=== PATIENT | female | born 1995 | race Caucasian/White ===

== ENCOUNTER 2020-02-26 10:55 | Outpatient (CLI) | payer OTHER ==
--- NOTE | 2020-02-26 12:06 | Non Stress Test Report ---
Non Stress Test Datetime Report Generated by CPN: 02/26/2020 12:05 DEMOGRAPHIC Test Number: 2 EGA NST: 39.0 INDICATION Indication for Study (NST) Other: repeat NST VITAL SIGNS Temperature - NST: 98.5 Pulse - NST: 66 RESP - NST: 18 NBPSYS NST: 117 NBPDIA NST: 68 MONITORING Monitor Explained: Monitor Explained; Test Explained; Patient Verbalized Understanding Time on Monitor: 02/26/2020 11:03 Time off Monitor: 02/26/2020 11:45 NST Duration: 42 NST INTERVENTIONS NST Interventions: PO Hydration; Reposition Patient Physician Notified NST: Dr Bennett BABY A: [id number] BABY A Movement : Present Contraction Frequency : Irreg FHR Baseline : 125 Accelerations : Prolonged Decelerations : None Variability : Moderate 6-25bpm NST Review: Meets Criteria for Reactive NST NST Review and Verified By : Cyn RN NST Results: Reactive NST REPORT Report Trigger: Send Report
== END 2020-02-26 11:51 | disposition home or self-care (01) ==
LOC: LC 10:55
PROVIDERS: ATTEND Obstetrics & Gynecology Gynecology
DX: O36.8330 Maternal care for abnormalities of the fetal heart rate or rhythm, third trimester, not applicable or unspecified (principal); Z3A.39 39 weeks gestation of pregnancy; Z88.0 Allergy status to penicillin; Z91.040 Latex allergy status
CPT/HCPCS: 59025

== ENCOUNTER 2020-03-05 03:19 | Inpatient (IN) | payer OTHER ==
[2020-03-05] MEDS ORDERED: RINGERS SOLUTION,LACTATED 1,000 ML IV PRN (03:29)
[2020-03-05] MEDS ORDERED: MISOPROSTOL 0.2 MG TABLET ONE (03:32)
[2020-03-05] MEDS ORDERED: OXYTOCIN/0.9 % SODIUM CHLORIDE 0 UNIT/0 ML RTUINJ ONE (03:32)
[2020-03-05] MEDS ORDERED: OXYTOCIN 10 UNIT/ML VIAL ONE (03:32)
[2020-03-05] MEDS ORDERED: LIDOCAINE 1% INJ-PF (10 MG/ML) 30 ML SDV ONE (03:32)
--- NOTE | 2020-03-05 04:19 | Admission Physical ---
Datetime Report Generated by CPN: 03/05/2020 04:18 CURRENT ADMISSION Chief Complaint: Uterine Contractions Indication for Induction: Not Applicable Admit Impression : Term, Intrauterine ; Active Labor Admit Plan: Admit to Unit; Initiate Labor Protocol ALLERGIES Medication Allergies: Yes Medication Allergies: Penicillins (02/26/2020); Latex, Natural Rubber (02/26/2020) Latex: Latex Allergies OBSTETRICAL HISTORY EDC: 03/04/2020 00:00 : 2 Para: 1 Term: 1 : 0 SAB: 0 IAB: 0 Livin Cesareans: 0 VBACs: 0 Gestational Diabetes: Yes Rh Sensitization: No Incompetent Cervix: No JOHN: No Infertility: No ART Treatment: No Uterine Anomaly: No IUGR: No Hx Previous C/S: No Macrosomia: No Hx Loss/Stillborn: No PIH: No Hx : No Placenta Previa/Abruption: No Depression/PP Depression: No PTL/PROM: No Post Hemorrhage: No Current Procedures: Ultrasound; NST Obstetrical History Comments: g1-2016, , male, rapid labor 2 hours, 6lb 13oz, nicu stay for 1 week, meconium g2-current, GDM SEE RECORDS Alcohol: No Marijuana : No Cocaine: No Other Illicit Drugs: No Cigarettes: Never Smoker. [id number] Advised to Stop: No MEDICAL HISTORY Diabetes: Yes Diabetes Type: Gestational Diabetes Blood Transfusion: No Pulmonary Disease (Asthma, TB): No Breast Disease: No Hypertension: No Horse Breeder Surgery: No Heart Disease: No Hosp/Surgery: Yes Autoimmune Disorder: No Anesthetic Complications: No Kidney Disease: No Abnormal Pap Smear: No Neuro/Epilepsy: No Psychiatric Disorders: No Other Medical Diseases: No Hepatitis/Liver Disease: No Significant Family History: No Varicosities/Phlebitis: No Trauma/Violence : No Thyroid Dysfunction: No Medical History Comments: childbirth x 1 (Annotations: Data stored by [facility] on behalf of user) INFECTIOUS HISTORY Gonorrhea: No Genital Herpes: No Chlamydia: No Tuberculosis: No Syphilis: No Hepatitis: No HIV/AIDS Exposure: No Rash or Viral Illness: No HPV: No PHYSICAL EXAM General: Normal HEENT: Normal Neurologic: Normal Thyroid: Deferred Heart: Normal Lungs: Normal Breast: Deferred Back: Normal Abdomen: Normal Genitourinary Exam: Normal Extremities: Normal DTRs: Normal Pelvic Type: Adequate Vital Signs: Reviewed FETUS A EGA: 40.1 Monitoring: External US Decelerations: None Presentation: Vertex Admit Comment: 24yo at 40+1ega presents for active labor. I was called at 0328 and was told she was 8cm multip with h/o fast labors. She delivered as I arrived to her door on labor and delivery. See delivery note. She had been offered IOL due to h/o precip but declined in office. H/o GDM - diet controlled. Admit and precipitous delivery. Pt reports ctx started at 0200 and SROM clear fluid at 0300 and that is when they began to come in to hospital. PLANS FOR LABOR AND DELIVERY Labor and Delivery: None Pain Management: None Feeding Preference: Breast Benefit of Breast Feed Discussed: Yes Circumcision: N/A INFORMED CONSENT Informed Consent Obtained: Vaginal Delivery; Risks, Benefits and Alternatives Discussed Signature: with User ID: [email or web address]
[2020-03-05] MEDS ORDERED: DIBUCAINE 1% OINTMENT 28 GM TP PRN (04:21)
[2020-03-05] MEDS ORDERED: OXYTOCIN/0.9 % SODIUM CHLORIDE 30 UNIT/500 ML RTUINJ IV PRN (04:21)
[2020-03-05] MEDS ORDERED: PSEUDOEPHEDRINE HCL 30 MG TABLET PO PRN (04:21)
[2020-03-05] MEDS ORDERED: BENZOCAINE/MENTHOL AEROSOL SPRAY 56 ML TOP PRN (04:21)
[2020-03-05] MEDS ORDERED: PROMETHAZINE HCL 25 MG TABLET PO PRN (04:21)
[2020-03-05] MEDS ORDERED: MEASLES,MUMPS&RUBELLA VACC/PF 0.5 ML VIAL SUBCUT PRN (04:21)
[2020-03-05] MEDS ORDERED: ACETAMINOPHEN WITH CODEINE #3 TABLET PO PRN ×2 (04:21)
[2020-03-05] MEDS ORDERED: MAGNESIUM HYDROXIDE SUSP 30 ML UDCUP PO PRN (04:21)
[2020-03-05] MEDS ORDERED: ZOLPIDEM TARTRATE 5 MG TABLET PO PRN (04:21)
[2020-03-05] MEDS ORDERED: ACETAMINOPHEN 325 MG TABLET PO PRN (04:21)
[2020-03-05] MEDS ORDERED: PROMETHAZINE HCL 25 MG SUPP.RECT PR PRN (04:21)
[2020-03-05] MEDS ORDERED: GLYCERIN/WITCH HAZEL LEAF 1 EACH MED..WIPE TP PRN (04:21)
[2020-03-05] MEDS ORDERED: NA PHOS,M-B/NA PHOS,DI-BA (ADULT) 133 ML ENEMA PR PRN (04:21)
[2020-03-05] MEDS ORDERED: PROMETHAZINE HCL INJ 25 MG/1 ML VIAL IV PRN (04:21)
[2020-03-05] MEDS ORDERED: DIPHENHYDRAMINE HCL 25 MG CAPSULE PO PRN (04:21)
[2020-03-05 04:40] LABS: ABSOLUTE LYMPHOCYTES (AUTO) 1.5 10^3/uL (0.5-4.7); ABSOLUTE MONOCYTES (AUTO) 0.6 10^3/uL (0.1-1.4); ABSOLUTE NEUT (AUTO) 12.5 10^3/uL (1.7-8.2); BASOPHILS % (AUTO) 0.2 % (0-2); EOSINOPHILS % (AUTO) 0.3 % (0-6); HEMATOCRIT 41.3 % (36.0-47.0); HEMOGLOBIN 14.8 g/dL (12.0-15.5); LYMPHOCYTES % (AUTO) 9.9 % (13-45); MEAN CORPUSCULAR HEMOGLOBIN 32.3 pg (27.0-33.4); MEAN CORPUSCULAR HGB CONC 35.8 g/dL (32.0-36.0); MEAN CORPUSCULAR VOLUME 90 fl (80-97); MONOCYTES % (AUTO) 4.3 % (3-13); PLATELET COUNT 158 10^3/uL (150-450); RED BLOOD COUNT 4.58 10^6/uL (3.72-5.28); RED CELL DISTRIBUTION WIDTH 13.2 % (11.5-14.0); SEGMENTED NEUTROPHILS % (AUTO) 85.3 % (42-78); TOTAL CELLS COUNTED % (AUTO) 100 %; WHITE BLOOD COUNT 14.6 10^3/uL (4.0-10.5)
[2020-03-05] MEDS ORDERED: BENZOCAINE/MENTHOL AEROSOL SPRAY 56 ML ONE (05:59)
--- NOTE | 2020-03-05 06:25 | Delivery Summary ---
Del Sum A-C Datetime Report Generated by CPN: 03/05/2020 06:25 DELIVERY PERSONNEL DELIVERY PERSONNEL: [id number] Delivery Doctor:: Brittney Jimenes MD Labor and Delivery Nurse:: Sari Rocha RNcutter v groove Nurse:: Arleth Kemp RN Nursery Nurse:: Meri Ramirez RN Nursery Nurse:: FRANCISCA Jones/PHP CONSULTANT: Jacklyn Esteves, Additional Personnel: : Jeny Irene RN MATERNAL INFORMATION Delivery Anesthesia: None Medications After Delivery: Pitocin 10 Units IM Delivery QBL: 207 Maternal Complications: None; Precipitous Labor (<3hrs) Provider Comments: I was called at 0328 VFI delivered just as I arrived to the door of patients room at 0340. She arrived at 0324 and was checked at 0326. Cord doubly clamped and cut and infant on maternal abdomen. Placenta delivered spontaneously and intact. IM pitocin given due to no IV at the time of delivery. No perineal lacerations. Good hemostasis. FF at U. Mother and baby stable upon provider leaving the room. LABOR SUMMARY EDC: 03/04/2020 00:00 No. Babies in Womb: 1 Attempted: No Labor Anesthesia: None LABOR INFORMATION Reason for Induction: Not Applicable Onset of Labor: 03/05/2020 03:00 Complete Dilatation: 03/05/2020 03:34 Oxytocin: N/A Group B Beta Strep: neg Antibiotics # of Doses: n/a Steroids Given: None Reason Steroids Not Administered: Not Applicable MEMBRANES Membranes Rupture Method: Spontaneous Rupture of Membranes: 03/05/2020 03:00 Length of Rupture (hr): 0.67 Amniotic Fluid Color: Clear Amniotic Fluid Amount: Moderate Amniotic Fluid Odor: Normal STAGES OF LABOR Stage 1 hr: 0 Stage 1 min: 34 Stage 2 hr: 0 Stage 2 min: 6 Stage 3 hr: 0 Stage 3 min: 5 Total Time in Labor hr: 0 Total Time in Labor min: 45 VAGINAL DELIVERY Episiotomy: None Laceration #1: None Laceration Extension #1: N/A Laceration Repair: Not Applicable Sponge Count Correct: N/A Sharps Count Correct: N/A CSECTION DELIVERY Primary Indication: N/A Secondary Indication: N/A CSection Incidence: N/A Labor: N/A Elective: N/A CSection Incision: N/A BABY A INFORMATION Delivery Date/Time: 03/05/2020 03:40 Method of Delivery: Vaginal Nurse Controlled Delivery: Yes Born in Route : No : N/A Forceps: N/A Vacuum Extraction: N/A Shoulder Dystocia : No PRESENTATION/POSITION BABY A Presentation: Cephalic Cephalic Presentation: Vertex Vertex Position: Right Occipital Anterior Breech Presentation: N/A PLACENTA INFORMATION BABY A Placenta Delivery Time : 03/05/2020 03:45 Placenta Method of Delivery: Spontaneous Placenta Status: Delivered SCORES BABY A Heart Rate 1 min: >100 bpm Resp Effort 1 min: Good Cry Reflex Irritability 1 min: Cough or Sneeze or Pulls Away Muscle Tone 1 min: Active Motion Color 1 min: Blue/Pale Resuscitation Effort 1 min: Tactile Stimulation SCORE 1 MIN: 8 Heart Rate 5 min: >100 bpm Resp Effort 5 min: Good Cry Reflex Irritability 5 min: Cough or Sneeze or Pulls Away Muscle Tone 5 min: Active Motion Color 5 min: Body [place], Extremities Blue Resuscitation Effort 5 min: Tactile Stimulation SCORE 5 MIN: 9 INFANT INFORMATION BABY A Gestational Age at Delivery: 40.1 Gestational Status: Full Term- 39- 40.6 Weeks Outcome : Liveborn Infant Condition : Stable Infant Sex: Female IDENTIFICATION BABY A Verification Date/Time: 03/05/2020 04:08 ID Band Number: [id number] Mother's Name Verified: Yes RN Verifying Infant: M. Irene RN and A. Chalman RN WEIGHT/LENGTH BABY A Birthweight (gm): 3780 Infant Weight (lb): 8 Infant Weight (oz): 5 Infant Length (in): 21.00 Length (cm): 53.34 CORD INFORMATION BABY A No. Cord Vessels: 3 Nuchal Cord : N/A Nuchal Cord- Other: left compound hand Cord Blood Taken: Yes-For Eval (Mom's Blood Type - or O+) Infant Suction: Mouth; Nose ASSESSMENT BABY A Complications: None Physical Findings at Delivery: Other Physical Findings- Other: Left compound hand; see initial nursery assessment Respirations: Appears Normal Skin to Skin: Yes Skin to Skin Time (min): 75 Insurance Sales Associate/ALS Called : No Care By: Roberto Echeverria RN Transferred To: Remains with Mother BABY B INFORMATION : N/A SIGNATURES Signature: with User ID: [email or web address]
--- NOTE | 2020-03-05 06:25 | Birth Certificate Data ---
Cert Data Datetime Report Generated by CPN: 03/05/2020 06:25 CERTIFICATE DATA 47a. Care: Yes (02/26/2020 10:56:Sari Rocha RN) 47b. Date of First Visit: 08/04/2019 00:00 (02/26/2020 10:56:Ne Verma RN) 48a. Number of Prev Live Births: 1 (02/26/2020 10:56:Ne Verma RN) 48b. Now Livin (02/26/2020 10:56:Ne Verma RN) 48c. Live Births Now : 0 (02/26/2020 10:56:QS system process) 48d. Date of Last Live : 11/22/2016 00:00 (02/26/2020 10:56:Ne Verma RN) 48e. Losses: 0 (02/26/2020 10:56:Ne Verma RN) RISK FACTORS IN THIS 49a. Diabetes: Yes (02/26/2020 10:56:Sari Rocha RN) Type of Diabetes: Gestational Diabetes (02/26/2020 10:56:Sari Rocha RN) 49b. Hypertension: No (02/26/2020 10:56:Sari Rocha RN) 49c. Previous Births: 0 (02/26/2020 10:56:Ne Verma RN) 49d. Stillborns: No (02/26/2020 10:56:Sari Rocha RN) 49d. IUGR: No (02/26/2020 10:56:Sari Rocha RN) 49e. Infertility Treatment: No (02/26/2020 10:56:Sari Rocha RN) 49f. Previous Cesareans: 0 (02/26/2020 10:56:Ne Verma RN) Mother's Height 50b. Height Inches: 64 (03/05/2020 04:25:QS system process) Mother's Weight 51b. Weight at Delivery (lbs): 145 (02/26/2020 12:05:QS system process) 52. Dt Last Normal Menses Began: 05/29/2019 00:00 (02/26/2020 10:56:Ne Verma RN) Infections Present/Treated 53a. Gonorrhea: No (02/26/2020 10:56:Sari Rocha RN) Results this Hospital Visit : Negative (02/26/2020 10:56:Ne Verma RN) 53b. Syphilis: No (02/26/2020 10:56:Sari Rocha RN) 53c. Chlamydia: No (02/26/2020 10:56:Sari Rocha RN) Results this Hospital Visit: Negative (02/26/2020 10:56:Ne Verma RN) 53d. Hepatitis B: No (02/26/2020 10:56:Sari Rocha RN) Results this Hospital Visit: Negative (02/26/2020 10:56:Ne Verma RN) 53e. Hepatitis C: Negative (02/26/2020 10:56:Ne Verma RN) 53h. Mother Tested for HBsAG: Yes (02/26/2020 10:56:Ne Verma RN) 53i. Date Tested: 08/05/2019 00:00 (02/26/2020 10:56:Ne Bertrandry, RN) 53j. Test Result: Negative (02/26/2020 10:56:Ne Verma, RN) Obstetric Procedures 54a, b, c. Obstetric Procedures: Ultrasound; NST (02/26/2020 10:56:Brisa Kwanmaribel, RN) Cigarette Smoking Cigarette Smoking: Never Smoker. [id number] (02/26/2020 10:56:[facility]) Onset of Labor 56a. PROM >12 Hrs: 0.67 (03/05/2020 03:30:QS system process) 56b. Precipitous Labor <3 Hrs: 0 (02/26/2020 10:56:QS system process) 56c. Prolonged Labor > 20 Hrs: 0 (02/26/2020 10:56:QS system process) 57a. Induction of Labor: N/A (02/26/2020 10:56:Jeny Irene RN) 57c. Non-Vertex Presentation A: Vertex (02/26/2020 10:56:Jeny Irene RN) 57d. Steroids - Lung Mat: None (02/26/2020 10:56:Jeny Irene RN) 57d. Steroids - Lung Mat: Not Applicable (02/26/2020 10:56:Jeny Irene RN) 57f. Mat [place] or Temp >100.4: 98.4 (02/26/2020 10:56:Sari Rocha RN) 57g. Moderate/Heavy Meconium: Clear (03/05/2020 03:30:Sari Rocha RN) 57h. Intolerance of Labor: N/A (02/26/2020 10:56:Jeny Irene RN) : N/A (02/26/2020 10:56:Jeny Irene RN) 57i. Epidural/Spinal Anesthesia: None (02/26/2020 10:56:Jeny Irene RN) Method of Delivery 58a. Forceps - Unsuccessful A: N/A (02/26/2020 10:56:Jeny Irene RN) 58b. Vacuum - Unsuccessful A: N/A (02/26/2020 10:56:Jeny Irene RN) 58c. Presentation at 58c. Presentation at - A : Vertex (02/26/2020 10:56:Jeny Irene RN) 58c. Presentation at - A : N/A (02/26/2020 10:56:Jeny Irene RN) 58c. Presentation at - A : Cephalic (02/26/2020 10:56:Jeny Irene RN) Final Route and Method of Del 58d. Baby A Route/Delivery: Vaginal (03/05/2020 03:40:Jeny Irene RN) 58e. Trial of Labor Attempted: No (02/26/2020 10:56:Jeny Irene RN) 58e. Trial of Labor Attempted A: N/A (02/26/2020 10:56:Jeny Irene RN) 58e. Trial of Labor Attempted B: N/A (02/26/2020 10:56:Jeny Irene RN) Maternal Morbidity 59b. 3rd or 4th Degree Lacs: None (02/26/2020 10:56:Britntey Jimenes MD ([facility])) 59b. 3rd or 4th Degree Lacs: N/A (02/26/2020 10:56:Jeny Irene RN) Birthweight Baby A: 3780 (02/26/2020 10:56:Jeny Irene RN) 60a. Pounds : 8 (02/26/2020 10:56:QS system process) 60b. Ounces: 5 (02/26/2020 10:56:QS system process) 61. GA at Delivery Baby A: 40.1 (02/26/2020 10:56:Jeny Irene RN) : Full Term- 39- 40.6 Weeks (02/26/2020 10:56:QS system process) 62a. 5 Minute Baby A: 9 (02/26/2020 10:56:QS system process)
[2020-03-05 06:43] LABS: BILIRUBIN,URINE NEGATIVE (NEGATIVE); GLUCOSE, URINE 50 mg/dL (NEGATIVE); KETONES,URINE NEGATIVE (NEGATIVE); LEUKOCYTE ESTERASE,URINE NEGATIVE (NEGATIVE); NITRITE,URINE NEGATIVE (NEGATIVE); PROTEIN,URINE 100 mg/dL (NEGATIVE); URINE SPECIFIC GRAVITY 1.008; UROBILINOGEN,URINE NEGATIVE mg/dL (<2.0)
[2020-03-05 06:44] LABS: APPEARANCE,URINE CLOUDY; COLOR,URINE RED
[2020-03-05] MEDS: IBUPROFEN 800 MG TABLET PO SCH ×3 (06:52→21:46)
[2020-03-05 06:55] LABS: URINE AMPHETAMINES SCREEN NEGATIVE; URINE BENZODIAZEPINES SCREEN NEGATIVE; URINE COCAINE SCREEN NEGATIVE; URINE MARIJUANA (THC) SCREEN NEGATIVE; URINE METHADONE SCREEN NEGATIVE; URINE PHENCYCLIDINE SCREEN NEGATIVE
[2020-03-05 07:05] LABS: URINE BARBITURATES SCREEN UNCONFIRMED POSITIVE
[2020-03-05] MEDS: FERROUS SULFATE 325 MG TABLET PO SCH ×2 (09:11→18:34)
[2020-03-05] MEDS: FAMOTIDINE 20 MG TABLET PO SCH ×2 (09:11→21:46)
[2020-03-05] MEDS: DOCUSATE SODIUM 100 MG CAPSULE PO SCH ×2 (09:11→18:35)
[2020-03-05] MEDS: SENNOSIDES/DOCUSATE 8.6-50 MG 1 EACH TABLET PO SCH (09:12)
[2020-03-05] MEDS: PRENATAL VITAMIN W DHA CAPSULE PO SCH (09:12)
[2020-03-06] MEDS: IBUPROFEN 800 MG TABLET PO SCH ×3 (06:08→22:13)
[2020-03-06 07:15] LABS: HEMATOCRIT 41.2 % (36.0-47.0); HEMOGLOBIN 14.7 g/dL (12.0-15.5); MEAN CORPUSCULAR HEMOGLOBIN 32.8 pg (27.0-33.4); MEAN CORPUSCULAR HGB CONC 35.6 g/dL (32.0-36.0); MEAN CORPUSCULAR VOLUME 92 fl (80-97); PLATELET COUNT 168 10^3/uL (150-450); RED BLOOD COUNT 4.48 10^6/uL (3.72-5.28); RED CELL DISTRIBUTION WIDTH 13.8 % (11.5-14.0); WHITE BLOOD COUNT 9.7 10^3/uL (4.0-10.5)
[2020-03-06] MEDS: FERROUS SULFATE 325 MG TABLET PO SCH ×2 (09:35→17:41)
[2020-03-06] MEDS: FAMOTIDINE 20 MG TABLET PO SCH ×2 (09:35→22:13)
[2020-03-06] MEDS: PRENATAL VITAMIN W DHA CAPSULE PO SCH (09:35)
[2020-03-06] MEDS: DOCUSATE SODIUM 100 MG CAPSULE PO SCH ×2 (09:35→17:41)
[2020-03-06] MEDS: SENNOSIDES/DOCUSATE 8.6-50 MG 1 EACH TABLET PO SCH (09:35)
--- NOTE | 2020-03-06 10:23 | PDOC PROGRESS REPORT ---
Subjective-OB Progress Note for:: 03/06/20 - PP Day #1, doing well, , UOB, voiding. Physical Exam (OB) Vital Signs: Temp Pulse Resp BP Pulse Ox 97.8 F 69 18 110/80 98 03/06/20 08:14 03/06/20 07:10 03/06/20 07:10 03/06/20 07:10 03/06/20 07:10 Intake & Output 03/05/20 03/06/20 03/07/20 06:59 06:59 06:59 Weight 66 kg - General General Appearance: Appears well, Alert In distress: None - PIH/Pre-Eclampsia DTR's: 2 + Clonus: Negative Headache: Absent Epigastric Pain: No Visual Changes: No - Maternal Morbidity 59. Maternal Morbidity (serious complications experinced by the mother associated with labor and delivery: None of the above - Lochia Lochia Amount: Scant < 10 ml Lochia Color: Rubra/Red - Abdomen Description: Soft, Flat Hernia Present: No Fundal Description: Firm, Midline Fundal Height: u/3 - u/4 - Respiratory Respiratory Status: No respiratory distress - Genitourinary Genitourinary Note: voiding - Extremities Upper extremity: Normal inspection Lower extremities: Normal inspection - Neurological Cognition: Normal Orientation: AAOx4 - Psychological Associated symptoms: Normal affect, Normal mood - Skin Skin Temperature: Warm Skin Moisture: Dry Objective-Diagnostic Laboratory: 03/06/20 06:34 03/06/20 06:34 WBC 9.7 RBC 4.48 Hgb 14.7 Hct 41.2 MCV 92 MCH 32.8 MCHC 35.6 RDW 13.8 Plt Count 168 Assessment and Plan(PN) - Assessment and Plan (1) Vaginal delivery Is this a current diagnosis for this admission?: Yes (2) Precipitous delivery, delivered (current hospitalization) Is this a current diagnosis for this admission?: Yes Plan:: ambulation encouraged, routine PP orders - Time Spent with Patient Time with patient: Less than 15 minutes Medications reviewed and adjusted accordingly: Yes - Disposition Anticipated Discharge Disposition: Home, Self Care Anticipated Discharge Timeframe: within 24 hours
[2020-03-07] MEDS: IBUPROFEN 800 MG TABLET PO SCH (05:34)
[2020-03-07] MEDS: PRENATAL VITAMIN W DHA CAPSULE PO SCH (09:22)
[2020-03-07] MEDS: DOCUSATE SODIUM 100 MG CAPSULE PO SCH (09:22)
[2020-03-07] MEDS: FERROUS SULFATE 325 MG TABLET PO SCH (09:23)
[2020-03-07] MEDS: FAMOTIDINE 20 MG TABLET PO SCH (09:23)
[2020-03-07] MEDS: SENNOSIDES/DOCUSATE 8.6-50 MG 1 EACH TABLET PO SCH (09:23)
--- NOTE | 2020-03-07 09:55 | PDOC DISCHARGE SUMMARY ---
Impression - Admit/DC Date/PCP Admission Date/Primary Care Provider: 03/05/20 03:30 Discharge Date: 03/07/20 - Discharge Diagnosis (1) Precipitous delivery, delivered (current hospitalization) Is this a current diagnosis for this admission?: Yes (2) Vaginal delivery Is this a current diagnosis for this admission?: Yes (3) normal course Is this a current diagnosis for this admission?: Yes - Additional Information Resuscitation Status: Full Code Discharge Diet: Regular Discharge Activity: Balance Activity w/Rest, Pelvic Rest Prescriptions: Ibuprofen [Motrin 800 mg Tablet] 800 mg PO Q8HP PRN #60 tablet PRN Reason: Home Medications: 95/Iron Fum/Folic/Dha [ + Dha Combo Pack] 1 each PO DAILY 02/26/20 Ibuprofen [Motrin 800 mg Tablet] 800 mg PO Q8HP PRN #60 tablet 03/07/20 HPI Gestational Age: 40.1 Reason(s) for Admission: Onset of Labor Procedures: None Procedure(s) Note: Precipitous labor/delivery Intrapartum Procedure(s): Spontaneous Vaginal Delivery Hospital Course 59. Maternal Morbidity (serious complications experinced by the mother associated with labor and delivery: None of the above Results Laboratory Results: WBC 9.7 10^3/uL (4.0-10.5) 03/06/20 06:34 RBC 4.48 10^6/uL (3.72-5.28) 03/06/20 06:34 Hgb 14.7 g/dL (12.0-15.5) 03/06/20 06:34 Hct 41.2 % (36.0-47.0) 03/06/20 06:34 MCV 92 fl (80-97) 03/06/20 06:34 MCH 32.8 pg (27.0-33.4) 03/06/20 06:34 MCHC 35.6 g/dL (32.0-36.0) 03/06/20 06:34 RDW 13.8 % (11.5-14.0) 03/06/20 06:34 Plt Count 168 10^3/uL (150-450) 03/06/20 06:34 Lymph % (Auto) 9.9 % (13-45) L 03/05/20 04:31 [place] % (Auto) 4.3 % (3-13) 03/05/20 04:31 Eos % (Auto) 0.3 % (0-6) 03/05/20 04:31 Baso % (Auto) 0.2 % (0-2) 03/05/20 04:31 Absolute Neuts (auto) 12.5 10^3/uL (1.7-8.2) H 03/05/20 04:31 Absolute Lymphs (auto) 1.5 10^3/uL (0.5-4.7) 03/05/20 04:31 Absolute Monos (auto) 0.6 10^3/uL (0.1-1.4) 03/05/20 04:31 Absolute Eos (auto) 0.0 10^3/uL (0.0-0.6) 03/05/20 04:31 Absolute Basos (auto) 0.0 10^3/uL (0.0-0.2) 03/05/20 04:31 Seg Neutrophils % 85.3 % (42-78) H 03/05/20 04:31 Urine Color RED 03/05/20 06:01 Urine Appearance CLOUDY 03/05/20 06:01 Urine pH 7.0 (5.0-9.0) 03/05/20 06:01 Ur Specific [place] 1.008 03/05/20 06:01 Urine Protein 100 mg/dL (NEGATIVE) H 03/05/20 06:01 Urine Glucose (UA) 50 mg/dL (NEGATIVE) H 03/05/20 06:01 Urine Ketones NEGATIVE mg/dL (NEGATIVE) 03/05/20 06:01 Urine Blood LARGE (NEGATIVE) H 03/05/20 06:01 Urine Nitrite NEGATIVE (NEGATIVE) 03/05/20 06:01 Urine Bilirubin NEGATIVE (NEGATIVE) 03/05/20 06:01 Urine Urobilinogen NEGATIVE mg/dL (<2.0) 03/05/20 06:01 Ur Leukocyte Esterase NEGATIVE (NEGATIVE) 03/05/20 06:01 Urine Ascorbic Acid NEGATIVE (NEGATIVE) 03/05/20 06:01 Urine Opiates Screen NEGATIVE 03/05/20 06:01 Urine Methadone Screen NEGATIVE 03/05/20 06:01 Ur Barbiturates Screen UNCONFIRMED POSITIVE 03/05/20 06:01 Ur Phencyclidine Scrn NEGATIVE 03/05/20 06:01 Ur Amphetamines Screen NEGATIVE 03/05/20 06:01 U Benzodiazepines Scrn NEGATIVE 03/05/20 06:01 Urine Cocaine Screen NEGATIVE 03/05/20 06:01 U Marijuana (THC) Screen NEGATIVE 03/05/20 06:01 RPR NONREACTIVE (NONREACTIVE) 03/05/20 04:31 Blood Type O POSITIVE 03/05/20 04:31 Antibody Screen NEGATIVE 03/05/20 04:31 Plan Plan of Treatment: f/u at [facility] 4 wks Time Spent: Less than 30 Minutes
[2020-03-07 10:44] VITALS: BP 120/69
== END 2020-03-07 13:00 | disposition home or self-care (01) | DRG 807 ==
LOC: LC 03:19 → LR 03:30 → 2S 06:32
PROVIDERS: ADMIT Student in an Organized Health Care Education/Training Program; ATTEND Student in an Organized Health Care Education/Training Program
PROC: 10E0XZZ Delivery of Products of Conception, External Approach (ICD-10-PCS; principal; 2020-03-05)
DX: O62.3 Precipitate labor (principal); O32.6XX0 Maternal care for compound presentation, not applicable or unspecified; O24.420 Gestational diabetes mellitus in childbirth, diet controlled; Z37.0 Single live birth; Z3A.40 40 weeks gestation of pregnancy; Z88.0 Allergy status to penicillin; Z91.040 Latex allergy status
CPT/HCPCS: 36415; 80307; 81005; 85025; 85027; 86592; 86850; 86900; 86901; J2590; J3490